=== PATIENT | female | born 1995 | race African-American/Black ===

== ENCOUNTER 2018-10-11 09:39 | Emergency (ER) | payer MEDICAID ==
[~2018-10-11] VITALS: Ht 175.3 cm; Wt 94.0 kg
[~2018-10-11 09:39] MED LIST: ALBU17AE26; IBUP-779
[2018-10-11 11:48] LABS: CLARITY URINE CLEAR (CLEAR); COLOR URINE YELLOW (YELLOW); KETONES URINE NEGATIVE (NEGATIVE); LEUKOCYTE ESTERASE URINE TRACE (NEGATIVE); NITRITE URINE NEGATIVE (NEGATIVE); OCCULT BLOOD URINE NEGATIVE (NEGATIVE); PH URINE 7.5 (4.5-8.0); PROTEIN URINE 2+ (NEGATIVE); SPECIFIC GRAVITY URINE 1.007 (1.005-1.030); UROBILINOGEN URINE 0.2 E.U./dL (0.2-1.0)
[2018-10-11 12:16] LABS: CHLORIDE 109 mEq/L (98-107); PROTHROMBIN TIME 10.3 sec (9.1-11.1)
[2018-10-11 12:17] LABS: BASOPHILS % 0.4 % (0.0-2.0); EOSINOPHILS % 0.4 % (0.0-5.0); HEMATOCRIT. 40.9 % (36.0-48.0); HEMOGLOBIN. 13.8 g/dL (12.0-16.0); LYMPHOCYTES % 18.6 % (20.0-50.0); MEAN CORPUSCULAR HEMOGLOBIN 30.8 pg (28.0-32.0); MEAN CORPUSCULAR VOLUME 91.1 fL (81.0-99.0); MEAN PLATELET VOLUME 9.4 fl (7.4-10.4); MONOCYTES % 7.1 % (2.0-8.0); NEUTROPHILS % 73.5 % (40.0-76.0); PLATELET 255 x1000/uL (130-400); RED BLOOD CELL COUNT 4.48 mill/uL (4.2-5.4)
[2018-10-11 12:19] LABS: ETHANOL BLOOD < 10 mg/dL
[2018-10-11 12:55] LABS: HCG SCREEN NEGATIVE
[2018-10-11 12:55] LABS: *BARBITURATES SCREEN URINE NEGATIVE (NEGATIVE)
[2018-10-11 12:56] LABS: *AMPHETAMINES SCREEN URINE NEGATIVE (NEGATIVE); *BENZODIAZEPINES SCREEN URINE NEGATIVE (NEGATIVE); *COCAINE SCREEN URINE NEGATIVE (NEGATIVE); METHADONE URINE SCREEN NEGATIVE (NEGATIVE); OPIATES URINE SCREEN NEGATIVE (NEGATIVE); PHENCYCLIDINE URINE SCREEN NEGATIVE (NEGATIVE)
[2018-10-11 12:58] LABS: CANNABINOID URINE SCREEN PRESUMTIVE POSITIVE (NEGATIVE)
[2018-10-11 13:44] LABS: CHLORIDE 109 mEq/L (98-107)
[2018-10-11 17:45] VITALS: BP 165/86
== END 2018-10-11 17:45 | disposition home or self-care (01) ==
LOC: ER 09:51
DX: R45.851 Suicidal ideations (principal); T39.1X1A Poisoning by 4-Aminophenol derivatives, accidental (unintentional), initial encounter; F12.10 Cannabis abuse, uncomplicated; Y92.89 Other specified places as the place of occurrence of the external cause
CPT/HCPCS: 36415; 80053; 80305; 80307; 80329; 81003; 81025; 84703; 85025; 85610; 93005; 99284; G0482